=== PATIENT | male | born 1975 | race Caucasian/White ===

== ENCOUNTER 2021-08-12 16:50 | Emergency (ER) | payer BC, OTHER ==
--- NOTE | 2021-08-12 17:34 | ED Physician Documentation ---
PD HPI UPPER EXT INJURY - Stated complaint Stated Complaint: RT FING LAC/INJ - Chief complaint Chief Complaint: Laceration - History obtained from History obtained from: Patient - History of Present Illness Location: Right, Finger Type of injury: Laceration Where injury occurred: Home Timing - duration: Hours (1) Timing - details: Abrupt onset Pain level max: 2 Pain level now: 1 Contributing factors: No: Anticoagulated - Additonal information Additional information: Patient is a 45-year-old male who presents to the emergency department with a right index finger laceration. This occurred at home. About an hour prior to arrival. Nothing makes it better or worse. No numbness or tingling. Not anticoagulated. Tetanus up-to-date. Review of Systems Constitutional: denies: Fever, Chills GI: denies: Vomiting Skin: denies: Rash PD PAST MEDICAL HISTORY - Past Medical History Past Medical History: No - Past Surgical History Past Surgical History: Yes General: Appendectomy - Present Medications Home Medications: Ambulatory Orders Medication Instructions Recorded Confirmed predniSONE [Deltasone] 60 mg PO DAILY 5 Days tablet 02/20/14 - Allergies Allergies/Adverse Reactions: Allergies Allergy/AdvReac Type Severity Reaction Status Date / Time No Known Drug Allergies Allergy Verified 08/12/21 16:53 - Social History Does the pt smoke?: No Smoking Status: Never smoker Does the pt drink ETOH?: Yes Does the pt have substance abuse?: No PD ED PE NORMAL - Vitals Vital signs reviewed: Yes - General General: Alert and oriented X 3, No acute distress - HEENT HEENT: Moist mucous membranes - Derm Derm: Warm and dry - Extremities Extremities: Other (Right index finger, laceration near the PIP joint, lateral aspect. Neurovascular intact. Tendons intact. No bleeding. Well approximated) - Neuro Neuro: Alert and oriented X 3 - Psych Psych: Normal mood, Normal affect Results - Vitals Vitals: Vital Signs - 24 hr 08/12/21 08/12/21 16:53 17:40 Temperature 36.5 C 36.6 C Heart Rate 66 60 Respiratory 16 16 Rate Blood Pressure 140/80 H 135/86 H O2 Saturation 98 96 Oxygen O2 Source Room air Procedures - Laceration (location) Right index finger laceration Length in cm: 2 Wound type: Linear, Into subcut fat Neurovascular status: Sensory intact, Motor intact, Vascular intact Tendon involvement: Tendon intact Wound preparation: Irrigated copiously NS, Wound explored Skin layer closure: Dermabond Other: Patient tolerated well, No complications, Neurovascular intact, Dressing applied, Tetanus UTD PD MEDICAL DECISION MAKING - ED course Complexity details: considered differential, d/w patient ED course: 45-year-old male with a right index finger laceration. This was repaired. Placed in a splint for comfort. Dermabond was used to repair the wound. He preferred this and a splint. Warnings of infection and instructions on wound care given at bedside. Also counseled on how to minimize scarring. Patient counseled regarding signs and symptoms for which I believe and urgent re-evaluation would be necessary. Patient with good understanding of and agreement to plan and is comfortable going home at this time This document was made in part using voice recognition software. While efforts are made to proofread this document, sound alike and grammatical errors may occur. Departure - Departure Disposition: 01 Home, Self Care Clinical Impression: Finger laceration Qualifiers: Encounter type: initial encounter Finger: index finger Damage to nail status: without damage Foreign body presence: without foreign body Laterality: right Qualified Code(s): S61.210A - Laceration without foreign body of right index finger without damage to nail, initial encounter Condition: Good Instructions: ED Laceration Hand Follow-Up: Marii Isabel ND [Primary Care Provider] - As Needed Comments: Follow-up with your doctor as needed for any further care. Return if you notice redness, swelling or drainage from the wound as this may indicate infection. The glue will dissolve on its own. Wear the splint for the next 2 to 3 days. Return if you worsen Discharge Date/Time: 08/12/21 17:43
[2021-08-12 17:43] VITALS: BP 135/86
== END 2021-08-12 17:43 | disposition home or self-care (01) ==
LOC: ED 16:50
DX: S61.210A Laceration without foreign body of right index finger without damage to nail, initial encounter (principal); W26.0XXA Contact with knife, initial encounter; Y92.009 Unspecified place in unspecified non-institutional (private) residence as the place of occurrence of the external cause
CPT/HCPCS: 12001; 99282

== ENCOUNTER 2023-07-06 20:16 | Emergency (ER) | payer BC ==
[2023-07-06 20:26] VITALS: BP 135/76; O2SAT 96
[2023-07-06] MEDS ORDERED: lidocaine 1% 20 ML MDV SUBQ ONE (20:53)
--- NOTE | 2023-07-06 20:56 | ED Physician Documentation ---
PD HPI LOWER EXT INJURY - Stated complaint Stated Complaint: R TOE PX - Chief complaint Chief Complaint: Ext Problem - History obtained from History obtained from: Patient - Additional information Additional information: Patient is a 47-year-old male presenting for evaluation of right great toe injury that occurred just prior to arrival. Patient was picking up a computer tower when it fell and hit his right great toe breaking off part of the toenail. He states his tetanus is up-to-date within the last 10 years. He does not take a blood thinner. He did take 2 Aleve prior to arrival. Review of Systems Skin: reports: Laceration (s) Musculoskeletal: reports: Extremity pain PD PAST MEDICAL HISTORY - Past Surgical History Past Surgical History: Yes General: Appendectomy - Present Medications Home Medications: Ambulatory Orders Medication Instructions Recorded Confirmed No Known Home Medications 07/06/23 07/06/23 - Allergies Allergies/Adverse Reactions: Allergies Allergy/AdvReac Type Severity Reaction Status Date / Time No Known Drug Allergies Allergy Verified 07/06/23 20:26 - Social History Does the pt smoke?: No Smoking Status: Never smoker Does the pt drink ETOH?: Yes Does the pt have substance abuse?: No PD ED PE NORMAL - General General: Alert and oriented X 3, No acute distress, Well developed/nourished - HEENT HEENT: Atraumatic - Respiratory Respiratory: No respiratory distress - Extremities Extremities: Other (Avulsion to medial distal portion of right great toenail; Distal pulses intact, normal range of motion of all digits) PD ED PE EXPANDED - Extremities Feet visual: 1 - laceration Results - Vitals Vitals: Vital Signs - 24 hr 07/06/23 20:20 Temperature 36.1 C L Heart Rate 59 L Respiratory 17 Rate Blood Pressure 135/76 H O2 Saturation 96 Oxygen O2 Source Room air Procedures - Laceration (location) R great toe Length in cm: 2 Wound type: Irregular, Clean Neurovascular status: Sensory intact, Motor intact, Vascular intact Anesthesia: Lidocaine 1% Wound preparation: Hibiclens, Irrigated copiously NS Skin layer closure: Dermabond, Size #-0 - enter number (Vicryl; 5-0), Sutures - enter # (3) Other: Patient tolerated well, No complications, Neurovascular intact, Dressing applied, Tetanus UTD PD Medical Decision Making - ED course Complexity details: reviewed results, re-evaluated patient, d/w patient ED course: Patient with laceration and injury to right great toenail. X-ray was obtained which I reviewed I see no fracture. There was a partial avulsion of the distal portion of the toenail with underlying laceration. 3 sutures that are dissolvable were placed and a dressing was applied.Patient counseled on continued wound care as well as concerning symptoms to return for. His tetanus is up-to-date. Departure - Departure Disposition: Home, Self Care Clinical Impression: Laceration of right great toe Qualifiers: Encounter type: initial encounter Damage to nail status: with damage Foreign body presence: without foreign body Qualified Code(s): S91.211A - Laceration without foreign body of right great toe with damage to nail, initial encounter Condition: Stable Instructions: ED Laceration Foot Comments: You were evaluated for an injury to your right great toe and toenail with a laceration present. And we did an x-ray which did not show a broken bone. I did place 3 dissolvable stitches around the nailbed and also a thin layer of skin glue which will dissolve on its own. It will take some time for the nail to grow back and you should take extra caution to protect the toe and keep a dressing over it when you are wearing shoes. I would recommend follow-up with your primary care provider to ensure that it is healing properly. Return to the emergency department with any worsening symptoms or concerns. I did send you home with some narcotic pain medications tonight. Please do not drive or operate machinery while taking this medication. Forms: PCP List Discharge Date/Time: 07/06/23 22:55
--- NOTE | 2023-07-06 21:29 | XRAY Report ---
PROCEDURE: Toe(s) RT INDICATIONS: R great toe injury TECHNIQUE: 3 views of the first toe(s) acquired. COMPARISON: None. FINDINGS: Bones: No fractures or dislocations. No suspicious bony lesions. Soft tissues: No suspicious soft tissue densities. IMPRESSION: No visualized acute fracture or dislocation. However, occult injury cannot be excluded. Recommend willie rt interval imaging follow-up in 7-10 days as clinically indicated for additional evaluation. Reviewed by: Cata Simmons MD on 07/06/2023 9:27 PM [facility] Approved by: Cata Simmons MD on 07/06/2023 9:27 PM [facility] Station ID: [id number]
[2023-07-06] MEDS ORDERED: HYDROcod/ACET 5/325 Prepack 4 PO STA (22:35)
== END 2023-07-06 22:55 | disposition home or self-care (01) ==
LOC: ED 20:16
DX: S91.211A Laceration without foreign body of right great toe with damage to nail, initial encounter (principal); W20.8XXA Other cause of strike by thrown, projected or falling object, initial encounter; Y93.89 Activity, other specified
CPT/HCPCS: 12001; 99283

== ENCOUNTER 2023-10-28 13:14 | Outpatient (CLI) | payer BC ==
[2023-10-28 14:10] LABS: SARS-CoV-2 -RESP PCR PANEL NOT DETECTED
[2023-10-28 14:11] LABS: INFLUENZA A- RESP PCR PANEL NOT DETECTED; INFLUENZA B - RESP PCR PANEL NOT DETECTED; RSV- RESP PCR PANEL NOT DETECTED
== END 2023-10-28 13:15 | disposition home or self-care (01) ==
LOC: LAB 13:14
PROVIDERS: ATTEND Nurse Practitioner
DX: J06.9 Acute upper respiratory infection, unspecified (principal)
CPT/HCPCS: 87637